=== PATIENT | male | born 1985 | race Caucasian/White ===

== ENCOUNTER 2016-04-20 13:44 | Emergency (ER) | payer MEDICAID ==
[2016-04-20 13:50] VITALS: BP 114/67; PULSE 109; RESP 16; TEMP 97.9; O2SAT 92
--- NOTE | 2016-04-20 13:58 | EDPHY ---
H & P Stated Complaint: 1 week of cough and SOB, feels it's getting worse. Time Seen by Provider: 04/20/16 13:53 - Personal History Current Tetanus Diphtheria and Acellular Pertussis (TDAP): Yes - Medical/Surgical History Hx Asthma: Yes Hx Chronic Respiratory Disease: No Hx Diabetes: No Hx Cardiac Disease: No Hx Renal Disease: No Hx Cirrhosis: No Hx Alcoholism: No Hx HIV/AIDS: No Hx Splenectomy or Spleen Trauma: No Other PMH: Asthma - Social History Smoking Status: Current every day smoker Constitutional: Initial Vital Signs Temperature (C) 36.6 C 04/20/16 13:47 Heart Rate 109 H 04/20/16 13:47 Respiratory Rate 16 04/20/16 13:47 Blood Pressure 114/67 04/20/16 13:47 O2 Sat (%) 92 04/20/16 13:47 O2 Delivery Mode Room Air Allergies/Adverse Reactions: No Known Allergies Allergy (Unverified 11/21/09 16:39) Medical Decision Making ED Course/Re-evaluation: CHIEF COMPLAINT: Dyspnea. HISTORY OF PRESENT ILLNESS: The patient is a 30 year old male presenting with dyspnea and cough for the past 4 days. The patient reports coughing bouts that keep him awake at night and cause dyspnea. His symptoms are moderate in severity. He's been using an inhaler with minimal relief. He denies fever or chills. REVIEW OF SYSTEMS: A 10 point review of systems was performed and is negative with the exception of the elements mentioned in the history of present illness. PHYSICAL EXAM: HR, BP, O2 Sat, RR. Temp noted General Appearance: Alert, well hydrated, appropriate, and non-toxic appearing. Head: Atraumatic without scalp tenderness or obvious injury Eyes: Pupils equal, round, reactive to light and accommodation, EOMI, no trauma , no injection. Ears: Clear bilaterally, no perforation, normal landmarks Nose: Atraumatic, no rhinorrhea, clear. Throat: There is no erythema or exudates, no lesions, normal tonsils, mucus membranes moist. Neck: Supple, 2+ carotid upstroke, nontender, no lymphadenopathy. Respiratory: No retractions, no distress, no wheezes, course rhonchi. Cardiovascular: Regular rate and rhythm, no murmurs, rubs, or gallops. Bilateral carotid, radial, dorsalis pedis, and posterior tibial pulses intact. Good capillary refill all extremities. Gastrointestinal: Abdomen is soft, nontender, non-distended, no masses, no rebound, no guarding, no peritoneal signs. Musculoskeletal: Normal active ROM of all extremities, atraumatic. Neurological: Alert, appropriate, and interactive. The patient has normal DTRs and non-focal cranial nerves, motor, sensory, and cerebellar exam. Skin: No rashes, good turgor, no nodules on palpation. Past medical history: Asthma Past surgical history: Denies. 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 DIAGNOSTICS/PROCEDURES/CRITICAL CARE TIME: DIFFERENTIAL DIAGNOSIS: The differential diagnosis for the patient's shortness of breath and hypoxemia included but was not limited to pneumonia, myocardial infarction, acute mountain sickness, high altitude pulmonary edema, congestive heart failure, and pulmonary embolus. MEDICAL DECISION MAKING: The patient is a 30 year old male with history of asthma, here with dyspnea and cough for the past 4 days. His cough is keeping him awake at night. He has used his inhaler but continues to feel short of breath. On exam the patient has course rhonchi consistent with bronchitis. Plan to discharge home with an inhaler and Azithromycin. Departure - Departure Disposition: Home, Routine, Self-Care Clinical Impression: Bronchitis Condition: Good Instructions: Acute Bronchitis (ED) Additional Instructions: Use inhaler as directed for cough and shortness of breath. Take full course of antibiotics as prescribed. Referrals: Simon Almazan MD [Medical Doctor] - As per Instructions (Primary care physician) Report Scribed for: Contreras Oleary Report Scribed by: Viridiana Rangel Date of Report: 04/20/16 Time of Report: 14:04
== END 2016-04-20 14:16 | disposition home or self-care (01) ==
DX: J40 Bronchitis, not specified as acute or chronic (principal); F17.200 Nicotine dependence, unspecified, uncomplicated

== ENCOUNTER 2016-05-04 14:15 | Emergency (ER) | payer MEDICAID ==
[2016-05-04 14:30] VITALS: RESP 22
[2016-05-04] MEDS ORDERED: predniSONE 20 MG TAB PO ONE (14:31)
[2016-05-04] MEDS ORDERED: IPRATROPIUM/ALBUTEROL 3 ML DEYVIAL IH ONE (14:31)
[2016-05-04] MEDS ORDERED: IPRATROPIUM/ALBUTEROL 3 ML DEYVIAL ONE (14:32)
--- NOTE | 2016-05-04 14:36 | EDPHY ---
H & P Stated Complaint: SOB/WHEEZING SAW LAST WEEK FINISHED [facility] Time Seen by Provider: 05/04/16 14:29 - Personal History Current Tetanus/Diphtheria Vaccine: Yes - Medical/Surgical History Hx Asthma: Yes Hx Chronic Respiratory Disease: No Hx Diabetes: No Hx Cardiac Disease: No Hx Renal Disease: No Hx Cirrhosis: No Hx Alcoholism: No Hx HIV/AIDS: No Hx Splenectomy or Spleen Trauma: No Other PMH: Asthma - Social History Smoking Status: Current every day smoker Constitutional: Initial Vital Signs Temperature (C) 36.6 C 05/04/16 14:21 Heart Rate 102 H 05/04/16 14:21 Respiratory Rate 22 H 05/04/16 14:21 Blood Pressure 124/79 H 05/04/16 14:21 O2 Sat (%) 94 05/04/16 14:21 O2 Delivery Mode Room Air Allergies/Adverse Reactions: No Known Allergies Allergy (Verified 05/04/16 14:20) Home Medications: Medication Instructions Recorded Albuterol [Proventil Inhaler] 1 - 2 puffs IH Q4 #1 mdi 04/20/16 Albuterol [Proventil Inhaler] 1 - 2 puffs IH Q4 #1 mdi 05/04/16 HYDROcodone/HOMATROPINE HYCODA 1 tsp PO Q4-6PRN PRN #120 ml 05/04/16 [Hycodan Syrup (RX)] methylPREDNISolone [Medrol Dose 1 each PO AD #1 ea 05/04/16 [place]] Medical Decision Making ED Course/Re-evaluation: CHIEF COMPLAINT: Shortness of breath HISTORY OF PRESENT ILLNESS: Generally healthy 30-year-old gentleman who I saw few days ago. He presented with bronchitis and asthma exacerbation. Although I was not sure if it was bacterial I did start him on a Z-[place] and he has been using nebulizer treatments very regularly. Unfortunately, his wheezing is persistent a bit worse. His cough is much better. He came back for further evaluation. REVIEW OF SYSTEMS: A 10 point review of systems was performed and is negative with the exception of the elements mentioned in the history of present illness. PHYSICAL EXAM: HR, BP, O2 Sat, RR. Temp noted General Appearance: Alert, well hydrated, appropriate, and non-toxic appearing. Head: Atraumatic without scalp tenderness or obvious injury Eyes: Pupils equal, round, reactive to light and accommodation, EOMI, no trauma , no injection. Ears: Clear bilaterally, no perforation, normal landmarks Nose: Atraumatic, no rhinorrhea, clear. Throat: There is no erythema or exudates, no lesions, normal tonsils, mucus membranes moist. Neck: Supple, 2+ carotid upstroke, nontender, no lymphadenopathy. Respiratory: No retractions, no distress, no wheezes, and no accessory muscle use. Lungs are clear to auscultation bilaterally. Cardiovascular: Regular rate and rhythm, no murmurs, rubs, or gallops. Bilateral carotid, radial, dorsalis pedis, and posterior tibial pulses intact. Good capillary refill all extremities. Gastrointestinal: Abdomen is soft, nontender, non-distended, no masses, no rebound, no guarding, no peritoneal signs. Musculoskeletal: Normal active ROM of all extremities, atraumatic. Neurological: Alert, appropriate, and interactive. The patient has normal DTRs and non-focal cranial nerves, motor, sensory, and cerebellar exam. Skin: No rashes, good turgor, no nodules on palpation. Past medical history: Asthma Past surgical history: Noncontributory Family history: Noncontributory Social history: Employed, does not abuse tobacco drugs or alcohol DIAGNOSTICS/PROCEDURES/CRITICAL CARE TIME: Study: PA and Lateral Chest X-ray Indication: diffuse wheezing and bronchitis rule out pneumonia Results: After viewing the images myself on the PACS system. My interpretation of the images is: no acute process. The radiologist interpretation is pending at the time of this dictation. I have discussed the above x-rays with the radiologist. DIFFERENTIAL DIAGNOSIS: The differential diagnosis for the patient's shortness of breath included but was not limited to pneumonia, myocardial infarction, acute mountain sickness, high altitude pulmonary edema, congestive heart failure , and pulmonary embolus. MEDICAL DECISION MAKING: This patient is in not in respiratory distress however he has significant end-expiratory wheezing. I am giving him a duo nebulizer treatment and 60 mg of prednisone. I will give him some additional cough suppressant and another MDI since he is out. I do not believe he needs another antibiotic. This time I will give him a course of steroids also a which I did not do last time as the patient improved considerably while he was here after 1 nebulizer treatment. This patient has no evidence of any cardiopulmonary disease on his x-ray. - Data Points Medications Given: Discontinued Medications Albuterol/Ipratropium (Duoneb) 3 ml IH EDNOW ONE Stop: 05/04/16 14:32 Last Admin: 05/04/16 14:31 Dose: 3 ml Prednisone (Prednisone) 60 mg PO EDNOW ONE Stop: 05/04/16 14:32 Last Admin: 05/04/16 14:40 Dose: 60 mg Departure - Departure Disposition: Home, Routine, Self-Care Clinical Impression: Exacerbation of asthma Acute bronchitis Qualifiers: Bronchitis organism: other organism Qualifier Code: (J20.8) Acute bronchitis due to other specified organisms Condition: Good Instructions: Asthma (ED), Bronchospasm (ED), Wheezing (ED) Prescriptions: HYDROcodone/HOMATROPINE HYCODA [Hycodan Syrup (RX)] 1 tsp PO Q4-6PRN PRN #120 ml PRN Reason: Cough, Moderate methylPREDNISolone [Medrol Dose [place]] 1 each PO AD #1 ea Albuterol [Proventil Inhaler] 1 - 2 puffs IH Q4 #1 mdi
--- NOTE | 2016-05-04 15:12 | DX ---
PA and Lateral Chest Indication: Dyspnea Comparison: 2 view chest May 16, 2013 Findings: The lungs are well aerated and clear. No pneumothorax, consolidation, or effusion. Heart si ze normal. Lingular consolidation has resolved since May 2013. Impression: Clear lungs. No pneumonia.
[2016-05-04 15:15] VITALS: BP 146/73; PULSE 98; TEMP 98.1; O2SAT 92
== END 2016-05-04 15:15 | disposition home or self-care (01) ==
DX: J45.901 Unspecified asthma with (acute) exacerbation (principal); J20.9 Acute bronchitis, unspecified; F17.200 Nicotine dependence, unspecified, uncomplicated